=== PATIENT | female | born 1950 | race Caucasian/White ===

== ENCOUNTER 2017-02-02 10:33 | Emergency (ER) | payer OTHER ==
[~2017-02-02] VITALS: Ht 167.6 cm; Wt 70.3 kg
[~2017-02-02 10:33] MED LIST: ALPRAZOLAM0.5 MG PO; ALPRAZOLAM1 M2 PO; CLINDAMYCIN HC300 MG PO; HYDROCODONE BIT1 T11 PO; IBUPROFEN600 MG PO; KLONOPIN0.5 MG PO; LEVAQUIN750 M1 PO; LITHIUM CARBON300 MG PO; NASONEX0.05 MG/AC NAS; ULTRAM50 MG PO
[2017-02-02] MEDS ORDERED: Synthroid,Levo50 MCG PO (10:39)
== END 2017-02-02 12:47 | disposition home or self-care (01) ==
LOC: ED 10:33
DX: S32.010A Wedge compression fracture of first lumbar vertebra, initial encounter for closed fracture (principal); F17.200 Nicotine dependence, unspecified, uncomplicated; Z88.0 Allergy status to penicillin; Z79.899 Other long term (current) drug therapy; W11.XXXA Fall on and from ladder, initial encounter; Y93.89 Activity, other specified; Y92.89 Other specified places as the place of occurrence of the external cause; Y99.8 Other external cause status

== ENCOUNTER → 2024-05-06 | Outpatient (CLI) | payer OTHER, MEDICAID ==
[~2024-05-06] MED LIST changes: +Synthroid,Levo50 MCG PO
[2024-05-06 09:59] LABS: HEMATOCRIT 44.3 % (37.0-47.0); MEAN CORPUSCULAR HGB 35.9 pg (27.0-31.0); MEAN CORPUSCULAR HGB CONC 33.9 g/dl (33.0-37.0); MEAN PLATELET VOLUME 9.4 fl (9.6-12.3); PLATELET COUNT AUTOMATED 265 10*3/uL (130-400); RED BLOOD COUNT 4.18 10*6/uL (4.10-5.10); RED CELL DISTRI WIDTH 14.3 % (0-14.5); WHITE BLOOD COUNT 23.8 10*3/uL (4.8-10.8)
[2024-05-06 10:14] LABS: MANUAL DIFF REFLEX YES
[2024-05-06 10:26] LABS: ALKALINE PHOSPHATASE 55 U/L (46-116); CHLORIDE 107 mmol/L (98-107); CHOLESTEROL 172 mg/dL (<200); LDL CHOLESTEROL 91 mg/dL (9-159); SGPT/ALT 7 U/L (5-49); TOTAL PROTEIN 6.5 gm/dL (6.0-8.0); TRIGLYCERIDES 102 mg/dl (<150)
[2024-05-06 10:27] LABS: BUN < 5 mg/dl (9-23)
[2024-05-06 11:26] LABS: TOTAL CELLS COUNTED 100 #CELLS
[2024-05-06 11:27] LABS: PLATELET SUFFICIENCY NORMAL (NORMAL)
== END | disposition home or self-care (01) ==
LOC: LAB 09:41
PROVIDERS: ATTEND Nurse Practitioner
DX: Z51.81 Encounter for therapeutic drug level monitoring (principal); F40.01 Agoraphobia with panic disorder; Z79.899 Other long term (current) drug therapy

== ENCOUNTER → 2024-12-02 | Outpatient (CLI) | payer OTHER, MEDICAID ==
[2024-12-02 11:02] LABS: HEMATOCRIT 45.1 % (37.0-47.0); MEAN CELL VOLUME 103.9 fl (81.0-99.0); MEAN CORPUSCULAR HGB 33.4 pg (27.0-31.0); MEAN CORPUSCULAR HGB CONC 32.2 g/dl (33.0-37.0); MEAN PLATELET VOLUME 9.3 fl (9.6-12.3); PLATELET COUNT AUTOMATED 347 10*3/uL (130-400); RED BLOOD COUNT 4.34 10*6/uL (4.10-5.10); RED CELL DISTRI WIDTH 13.9 % (0-14.5); WHITE BLOOD COUNT 28.8 10*3/uL (4.8-10.8)
[2024-12-02 11:05] LABS: MANUAL DIFF REFLEX YES
[2024-12-02 11:33] LABS: ALKALINE PHOSPHATASE 63 U/L (46-116); BUN 8 mg/dl (9-23); CHLORIDE 101 mmol/L (98-107); POTASSIUM 4.7 mmol/L (3.4-5.1); SGPT/ALT 8 U/L (5-49); TOTAL PROTEIN 7.1 gm/dL (6.0-8.0)
[2024-12-02 11:58] LABS: FREE T4 1.04 ng/dl (0.89-1.76)
[2024-12-02 12:11] LABS: PLATELET SUFFICIENCY NORMAL (NORMAL); TOTAL CELLS COUNTED 100 #CELLS
== END | disposition home or self-care (01) ==
LOC: LAB 10:31
PROVIDERS: ATTEND Nurse Practitioner Family
DX: Z51.81 Encounter for therapeutic drug level monitoring (principal); F40.01 Agoraphobia with panic disorder; Z79.899 Other long term (current) drug therapy